=== PATIENT | female | born 1955 | race African-American/Black ===

== ENCOUNTER 2017-09-23 09:20 | Day surgery (SDC) | payer MEDICARE ==
[~2017-09-23] VITALS: Ht 160 cm; Wt 95.3 kg
[2017-09-23] MEDS ORDERED: LACTATED RINGERS 1,000 ML IV SCH (10:15)
[2017-09-23 10:24] LABS: CLARITY URINE CLEAR (CLEAR); COLOR URINE YELLOW (YELLOW); KETONES URINE 2+ (NEGATIVE); LEUKOCYTE ESTERASE URINE NEGATIVE (NEGATIVE); NITRITE URINE NEGATIVE (NEGATIVE); OCCULT BLOOD URINE 2+ (NEGATIVE); PH URINE 6.5 (4.5-8.0); PROTEIN URINE NEGATIVE (NEGATIVE); SPECIFIC GRAVITY URINE 1.014 (1.005-1.030); UROBILINOGEN URINE 0.2 E.U./dL (0.2-1.0)
[2017-09-23 10:35] LABS: UCG SCREEN NEGATIVE
[2017-09-23 11:17] LABS: EOSINOPHILS % 0.5 % (0.0-5.0); HEMATOCRIT. 32.4 % (36.0-48.0); HEMOGLOBIN. 10.7 g/dL (12.0-16.0); LYMPHOCYTES % 20.9 % (20.0-50.0); MEAN CORPUSCULAR HEMOGLOBIN 23.6 pg (28.0-32.0); MEAN CORPUSCULAR VOLUME 71.9 fL (81.0-99.0); MEAN PLATELET VOLUME 8.6 fl (7.4-10.4); MONOCYTES % 4.5 % (2.0-8.0); NEUTROPHILS % 73.1 % (40.0-76.0); PLATELET 319 x1000/uL (130-400); RED BLOOD CELL COUNT 4.51 mill/uL (4.2-5.4); RED CELL DISTRIBUTION WIDTH 18.8 % (11.6-14.6)
[2017-09-23 11:22] LABS: INR 1.1; PROTHROMBIN TIME 11.2 sec (9.4-11.6)
[2017-09-23 11:25] LABS: CHLORIDE 108 mEq/L (98-107)
[2017-09-23] MEDS ORDERED: FENTANYL CITRATE/PF 50MCG/ML 2ML VIAL ONE ×2 (12:32→12:59)
[2017-09-23] MEDS ORDERED: MIDAZOLAM HCL 2 MG/2 ML VIAL ONE ×2 (12:32→13:00)
[2017-09-23] MEDS ORDERED: T4/T3 PO (12:57)
[2017-09-23] MEDS ORDERED: MULT-1146 PO (12:57)
[2017-09-23] MEDS ORDERED: AMLO10TA80 PO (12:57)
[2017-09-23] MEDS ORDERED: PROPOFOL 200MG/20ML VIAL IV ONE (12:59)
[2017-09-23] MEDS ORDERED: ONDANSETRON HCL 4MG/2ML VIAL ONE (13:01)
[2017-09-23] MEDS ORDERED: CEFAZOLIN SODIUM 1000MG/VIAL ONE (13:02)
[2017-09-23] MEDS ORDERED: MEPERIDINE HCL/PF 25MG/ML CPJ IV PRN (13:30)
[2017-09-23] MEDS ORDERED: ONDANSETRON HCL 4MG/2ML VIAL IV PRN (13:30)
[2017-09-23] MEDS ORDERED: HYDROMORPHONE HCL/PF 2MG/ML CPJ IV PRN (13:30)
[2017-09-23] MEDS ORDERED: LABETALOL 5MG/ML SYR 20 MG/4 ML SYRINGE IV PRN (13:30)
[2017-09-23] MEDS ORDERED: MELA5TAB3 PO (13:56)
[2017-09-23] MEDS ORDERED: ASCO100T12 PO (13:56)
[2017-09-23] MEDS ORDERED: VIT1TABL PO (13:56)
[2017-09-23] MEDS ORDERED: CHOL500010 PO (13:56)
[2017-09-23] MEDS ORDERED: MAGNESIUM PO (13:56)
[2017-09-23] MEDS ORDERED: CALCIUM PO (13:56)
== END 2017-09-23 15:45 | disposition home or self-care (01) ==
LOC: OR 09:20
PROVIDERS: ATTEND Obstetrics & Gynecology Obstetrics
DX: D25.9 Leiomyoma of uterus, unspecified (principal); I10 Essential (primary) hypertension; E66.9 Obesity, unspecified; F41.8 Other specified anxiety disorders; E03.8 Other specified hypothyroidism; D50.0 Iron deficiency anemia secondary to blood loss (chronic); Z79.899 Other long term (current) drug therapy; Z79.01 Long term (current) use of anticoagulants
CPT/HCPCS: 36415; 58558; 80048; 81003; 81025; 85025; 85610; 85730; 88305; 93005; J0690; J2250; J2405; J3010; J7120; J2704